=== PATIENT | male | born 2000 | race Caucasian/White ===

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

== ENCOUNTER 2022-07-17 16:19 | Emergency (ER) | payer BC ==
[2022-07-17 17:04] VITALS: BP 126/76; PULSE 88
[2022-07-17] MEDS ORDERED: Lidocaine 1% 10 ML MDV INJECT ONE (17:06)
[2022-07-17] MEDS ORDERED: Bacitracin Oint 1 GM U/D Packet TOP ONE (17:06)
== END 2022-07-17 17:40 | disposition home or self-care (01) ==
LOC: DL.ED 16:19
DX: S61.512A Laceration without foreign body of left wrist, initial encounter (principal); W26.8XXA Contact with other sharp object(s), not elsewhere classified, initial encounter
CPT/HCPCS: 12001; 99282